=== PATIENT | male | born 1965 | race Two or more races ===

== ENCOUNTER 2025-01-29 09:16 | Outpatient (CLI) | payer OTHER | END 2025-01-29 09:41 | disposition home or self-care (01) | LOC: SONOGRAMA 09:16 | PROVIDERS: ATTEND Internal Medicine Rheumatology | DX: M06.4 Inflammatory polyarthropathy (principal) ==

== ENCOUNTER 2025-02-05 09:40 | Outpatient (CLI) | payer OTHER | END 2025-02-05 10:01 | disposition home or self-care (01) | LOC: SONOGRAMA 09:40 | PROVIDERS: ATTEND Internal Medicine Rheumatology | DX: M06.4 Inflammatory polyarthropathy (principal) ==